=== PATIENT | male | born 1970 | race Caucasian/White ===

== ENCOUNTER 2021-11-25 15:30 | Outpatient (REF) | payer OTHER, SELFPAY ==
--- NOTE | ~2021-11-25 | XR_ITS ---
EXAMINATION: XR CHEST CLINICAL INFORMATION: Atherosclerotic coronary arteries. COMPARISON: Previous chest x-ray March 2020 TECHNIQUE: 2 views of the chest were obtained. FINDINGS: The cardiac and mediastinal contours are stable. There are median sternotomy wires and post-CABG changes. The lungs are clear. There is no pleural effusion or pneumothorax. There are old bilateral rib fractures.. XR/XR chest 2V IMPRESSION: Post-CABG changes. No evidence for acute disease in the chest.
--- NOTE | ~2021-11-25 | XR_ITS ---
EXAMINATION: BILATERAL CLAVICLES CLINICAL INFORMATION: Other specified disorder of bone/shoulder COMPARISON: None TECHNIQUE: 2 views of each clavicle FINDINGS: Bone alignment is normal. No acute fracture or dislocation is seen. There is evidence of old trauma to the bilateral second ribs. The left acromioclavicular joint is upper normal in size measuring 7 mm. The right acromioclavicular joint is normal. If there is clinical suspicion of AC separation, weightbearing views would be recommended. Soft tissues are unremarkable. There are median sternotomy wires. XR/XR clavicle RT IMPRESSION: Upper normal distance of the left acromioclavicular joint. If there is clinical suspicion of AC separation, weightbearing views would be recommended. Old bilateral second rib fractures. Median sternotomy wires.
--- NOTE | ~2021-11-25 | XR_ITS ---
EXAMINATION: BILATERAL CLAVICLES CLINICAL INFORMATION: Other specified disorder of bone/shoulder COMPARISON: None TECHNIQUE: 2 views of each clavicle FINDINGS: Bone alignment is normal. No acute fracture or dislocation is seen. There is evidence of old trauma to the bilateral second ribs. The left acromioclavicular joint is upper normal in size measuring 7 mm. The right acromioclavicular joint is normal. If there is clinical suspicion of AC separation, weightbearing views would be recommended. Soft tissues are unremarkable. There are median sternotomy wires. XR/XR clavicle LT IMPRESSION: Upper normal distance of the left acromioclavicular joint. If there is clinical suspicion of AC separation, weightbearing views would be recommended. Old bilateral second rib fractures. Median sternotomy wires.
== END 2021-11-25 15:31 | disposition home or self-care (01) ==
LOC: HO.XRAY 15:30
PROVIDERS: Absent Provider Internal Medicine; PCP Internal Medicine; Visit Provider Family Medicine
DX: I25.10 Atherosclerotic heart disease of native coronary artery without angina pectoris (principal); M89.8X1 Other specified disorders of bone, shoulder; Z95.1 Presence of aortocoronary bypass graft
CPT/HCPCS: 71046; 73000

== ENCOUNTER 2021-12-29 08:20 | Outpatient (REF) | payer OTHER, SELFPAY ==
--- NOTE | ~2021-12-29 | XR_ITS ---
EXAMINATION: XR CLAVICLE, RIGHT CLINICAL INFORMATION: Shoulder pain COMPARISON: Radiographs chest and right clavicle 11/25/2021. TECHNIQUE: Two views of the right clavicle. FINDINGS: There is no acute fracture. No bony destructive process. The acromioclavicular alignment is normal. The proximal humerus and glenohumeral joints are unremarkable. Right lung apex is clear. There are old healed fractures right anterior second rib and right lateral fifth rib. XR/XR clavicle RT IMPRESSION: -No acute fracture or destructive process. -Acromioclavicular alignment normal.
== END 2021-12-29 08:21 | disposition home or self-care (01) ==
LOC: HO.HOSX 08:20
PROVIDERS: Visit Provider Physician Assistant
DX: R07.89 Other chest pain (principal)
CPT/HCPCS: 73000; 99202

== ENCOUNTER → 2022-03-03 09:29 | Outpatient (BNVA) | payer OTHER, SELFPAY | PROVIDERS: PCP Internal Medicine; Visit Provider Physician Assistant | DX: R07.89 Other chest pain (principal) | CPT/HCPCS: 99212 ==

== ENCOUNTER 2022-03-07 12:51 | Emergency (ER) | payer OTHER, SELFPAY ==
--- NOTE | ~2022-03-07 | XR_ITS ---
EXAMINATION: XR CHEST CLINICAL INFORMATION: Chest pain COMPARISON: 11/25/2021 and priors TECHNIQUE: AP view of the chest was obtained. FINDINGS: Stable right midlung opacities again noted without change, likely related to overlying rib fractures. Persistent bronchial wall thickening. No focal pneumonia. No effusion or pneumothorax. Status post median sternotomy for bypass surgery. Aortic ectasia. No pulmonary edema. No mass or adenopathy. Normal gas pattern without free air or obstruction. No acute fracture seen. XR/XR chest 1V IMPRESSION: 1. Bronchial wall thickening without focal pneumonia. 2. Status post open heart surgery for coronary bypass grafting. 3. Old healed right rib fractures.
[2022-03-07 13:51] VITALS: BP 146/89; PULSE 66; RESP 18; TEMP 37.2; O2SAT 99; BMI 25.5
[2022-03-07 14:48] LABS: Hematocrit 48.8 % (42.0-52.0); Hemoglobin 16.8 g/dl (14.0-18.0); Mean Corpuscular HGB Conc 34.4 g/dl (31.0-36.0); Mean Corpuscular Hemoglobin 30.1 pg (27.0-33.0); Mean Corpuscular Volume 87.3 fL (80.0-98.0); Mean Platelet Volume 9.3 fL (9.4-12.4); Platelet Count 306 X10*3/uL (160-400); Red Blood Count 5.59 X10*6/uL (4.60-5.80); Red Cell Distribution Width 15.7 % (11.0-16.0); White Blood Count 16.7 X10*3/uL (4.8-10.8)
[2022-03-07 15:06] LABS: Troponin-I High Sensitivity < 3.5 ng/L (<3.5-35.0)
[2022-03-07 15:31] LABS: Anion Gap 11 (12-20); Blood Urea Nitrogen 8 mg/dL (9-16); Calcium 9.7 mg/dL (8.4-10.2); Carbon Dioxide 25 mmol/L (22-29); Chloride 109 mmol/L (96-108); Creatinine Clr Calc Pharmacy 103.1; Estimated Glomerular Filt Rate > 60; Glucose Random 99 mg/dL (60-115); Sodium 140 mmol/L (135-145)
--- NOTE | 2022-03-07 16:21 | ED_ITS ---
HPI - General Adult General Chief complaint: General Medical Stated complaint: numbness body Time Seen by Provider: 03/07/22 16:20 Source: patient Mode of arrival: ambulatory Limitations: other (Poor historian, uncooperative with history taking) History of Present Illness HPI narrative: 51-year-old male with an unknown medical history presents to the emergency department with multiple complaints including tongue, hand, feet, penis numbness, asymmetric chest, abnormal colored tongue, and feeling sick times an unknown period of time. Patient tells me that his left chest appears to be larger than his right chest and this has been going on for over 2 years, he tells me this happened after surgical procedure and he needs it evaluated today. Also tells me that the majority of his body feels numb, this started about a week ago but he tells me he wanted to come in to be evaluated today because it is not going away. He also reports chest discomfort however he is unable to describe the discomfort. And also tells me that his tongue is an abnormal collar. Patient is frustrated with me taking history and tells me he should not have to answer all these questions and I should just figure it out and I should be able to tell him why he does not feel well. Patient unwilling to answer my review of systems, and very agitated toward staff members Related Data Home Medications Medication Instructions Recorded Confirmed Unobtainable 12/29/21 12/29/21 Allergies Allergy/AdvReac Type Severity Reaction Status Date / Time No Known Allergies Allergy Unverified 12/29/21 09:57 Review of Systems Review of Systems: Yes Other (Patient unwilling to answer my review of systems) [facility] Past Medical History Attestation statement: The following information was validated with the patient. Source: old records reviewed and nursing notes reviewed Medical History Diabetes High cholesterol Hypertension Surgical History H/O hernia repair History of open heart surgery Social History Social History Alcohol intake: never Patient Tobacco Use Status: Current everyday Tobacco user Advance Directives: No Advance Directives Information Provided: No Current occupational status: unemployed Current occupation: Right handed Physical Exam ED Vital Signs: Vital Signs - 24 hr 03/07/22 13:51 Temperature 98.9 F Pulse Rate 66 Respiratory Rate 18 Blood Pressure 146/89 H Pulse Oximetry 99 Oxygen Delivery Method Room Air BMI result Body Mass Index 25.5 vss Appearance: Alert.? Oriented X3.? No acute distress.? Head: Normocephalic, atraumatic, no step-offs or deformities Eyes: Pupils equal, round and reactive to light.? ENT: Pharynx normal.? Poor dentition. Normal colored tongue. Neck: Normal inspection.? Neck supple.? CVS: Normal heart rate and rhythm.? Pulses normal.? Respiratory: No respiratory distress.? Breath sounds normal.? Abdomen: Soft and nontender.? Skin: Skin warm and dry.? Normal skin color.? Normal skin turgor.? Extremities: No lower extremity edema.? No calf ttp. 5/5 strength to bilateral upper and lower extremities Neuro: Oriented X 3.? No motor deficit.? No sensory deficit. CN 2-12 intact Course Reevaluation(s) Reevaluation #1: Patient noted to have a slight leukocytosis, no acute electrolyte abnormalities requiring intervention, EKG and troponin negative unlikely that this is ACS. X- ray with no acute findings. Flu/COVID/RSV pending. Urine pending. Time: 17:40 Reevaluation #2: I went to go check in on the patient and see how he was feeling, and to re- evaluate however patient eloped. Time: 17:52 Medical Decision Making [facility] Narrative Medical decision making narrative: [birth year] 51 yo m presents w/ chest discomfort, numbness to various aspects of his body, asymmetric chest. Patient's review of systems overwhelmingly positive however he is upset when I ask him questions, unwilling to elaborate on complaints, unwilling to answer complete review of systems PE benign NIH stroke scale 0 Unlikely lacunar infarct, unlikle ICH or posterior stroke. Will obtain blood work, urine, EKG, chest x-ray, flu/covid/rsv Medical Records Medical records reviewed: Yes I reviewed the patient's medical records. Lab Data Lab results reviewed: Yes I reviewed the patient's lab results. Result diagrams: 03/07/22 14:41 03/07/22 14:41 Labs: Lab Results 03/07/22 03/07/22 03/07/22 Range/Units 14:41 14:41 14:41 WBC 16.7 H (4.8-10.8) X10*3/uL RBC 5.59 (4.60-5.80) X10*6/uL Hgb 16.8 (14.0-18.0) g/dl Hct 48.8 (42.0-52.0) % MCV 87.3 (80.0-98.0) fL MCH 30.1 (27.0-33.0) pg MCHC 34.4 (31.0-36.0) g/dl RDW 15.7 (11.0-16.0) % Plt Count 306 (160-400) X10*3/uL MPV 9.3 L (9.4-12.4) fL Absolute Nucleated RBC 0.000 (0.0-0.012) X10*3/uL Nucleated RBC % (auto) 0.0 (0.0-0.2) /100WBC Sodium 140 (135-145) mmol/L Potassium 5.0 (3.3-5.1) mmol/L Chloride 109 H (96-108) mmol/L Carbon Dioxide 25 (22-29) mmol/L Anion Gap 11 L (12-20) BUN 8 L (9-16) mg/dL Creatinine 0.82 (0.5-1.4) mg/dL Estim Creat Clear Calc 103.1 Estimated GFR > 60 Random Glucose 99 (60-115) mg/dL Calcium 9.7 (8.4-10.2) mg/dL Troponin I High Sens < 3.5 (<3.5-35.0) ng/L ECG Data Attestation: I personally reviewed and interpreted this ECG as follows: Prior ECG tracings: available for review Interpretation: Ventricular rate of 47, AL normal, QRS normal, QT/QTC normal. EKG shows sinus bradycardia no ST elevations or inversions concerning for ischemia. No significant changes when compared to March 2020 Critical Care Time Critical Care Time Critical Care Time: No Discharge Plan Discharge Clinical Impression: Sternum pain, Malaise, Chest pain not due to acute coronary syndrome, Numbness Patient Disposition: Elopement Prescriptions: No Action Unobtainable Interventions: ED Discharge Assessment Last Done: 03/07/22 17:41 Discharge Date/Time: 03/07/22 17:42
--- NOTE | 2022-03-07 16:23 | ECG_ITS ---
Test Reason : numbness Blood Pressure : / mmHG Vent. Rate : 047 BPM Atrial Rate : 047 BPM P-R Int : 162 ms QRS Dur : 090 ms QT Int : 424 ms P-R-T Axes : 059 029 053 degrees QTc Int : 375 ms Sinus bradycardia Otherwise normal ECG When compared with ECG of 21-MAR-2020 12:38, Vent. rate has decreased BY 24 BPM QT has shortened Referred By: Timur Crane Electronically Signed By:JOSELYN SCHROEDER MD
--- NOTE | 2022-03-07 17:40 | PC.NURSE ---
Pt left without nofifying staff. Pt was seen by a provider.
[2022-03-07 17:44] LABS: Influenza A PCR NEGATIVE (Negative); Influenza B PCR NEGATIVE (Negative); Resp Syncy Virus RNA Qual PCR NEGATIVE (Negative); SARS COV2 PCR INHOUSE NEGATIVE (Negative)
== END 2022-03-07 17:42 | disposition left against medical advice (07) ==
PROVIDERS: Physician Assistant; Emergency Provider Internal Medicine; PCP Internal Medicine
DX: R07.89 Other chest pain (principal); R20.0 Anesthesia of skin; M79.10 Myalgia, unspecified site; Z20.822 Contact with and (suspected) exposure to COVID-19; F17.200 Nicotine dependence, unspecified, uncomplicated; Z71.6 Tobacco abuse counseling; Z79.899 Other long term (current) drug therapy
CPT/HCPCS: 0241U; 36415; 71045; 80048; 84484; 85027; 93005; 99283

== ENCOUNTER → 2022-03-27 08:47 | Outpatient (BNVA) | payer OTHER, SELFPAY | PROVIDERS: PCP Internal Medicine; Visit Provider Nurse Practitioner Family | DX: G89.18 Other acute postprocedural pain (principal); R07.89 Other chest pain; G89.29 Other chronic pain; Z95.1 Presence of aortocoronary bypass graft | CPT/HCPCS: 20552; 99202; J2795; J3300 ==

== ENCOUNTER 2023-04-02 18:43 | Outpatient (REF) | payer OTHER, SELFPAY ==
[2023-04-06 00:14] LABS: C. trachomatis RNA TMA DETECTED (NOT DETECTED); N. gonorrhoeae RNA TMA DETECTED (NOT DETECTED)
== END 2023-04-02 18:44 | disposition home or self-care (01) ==
LOC: HO.HHCLNP 18:43
PROVIDERS: Visit Provider Registered Nurse
DX: R30.0 Dysuria (principal); N45.1 Epididymitis
CPT/HCPCS: 36415; 87086; 87491; 87591

== ENCOUNTER 2023-04-03 15:47 | Outpatient (REF) | payer OTHER, SELFPAY ==
[2023-04-04 04:54] LABS: Syphilis Screen Nonreactive (Nonreactive)
[2023-04-06 15:18] LABS: HIV RNA PCR Qn Copies NOT DETECTED copies/mL (NOT DETECTED); HIV RNA PCR Qn Log Copies NOT DETECTED (NOT DETECTED)
[2023-04-07 13:43] LABS: HCV Log PCR <1.18 NOT DETECTED Log IU/mL (NOT DETECTED); HepC Viral Load <15 NOT DETECTED IU/mL (NOT DETECTED)
== END 2023-04-03 15:48 | disposition home or self-care (01) ==
LOC: HO.HHCL 15:47
PROVIDERS: Visit Provider Registered Nurse
DX: R30.0 Dysuria (principal)
CPT/HCPCS: 36415; 86780; 87522; 87536

== ENCOUNTER 2024-07-31 12:19 | Outpatient (REF) | payer OTHER, SELFPAY ==
[2024-07-31 13:47] LABS: Hematocrit 38.3 % (42.0-52.0); Hemoglobin 12.9 g/dl (14.0-18.0); Mean Corpuscular HGB Conc 33.7 g/dl (31.0-36.0); Mean Corpuscular Hemoglobin 30.5 pg (27.0-33.0); Mean Corpuscular Volume 90.5 fL (80.0-98.0); Mean Platelet Volume 9.9 fL (9.4-12.4); Platelet Count 290 X10*3/uL (160-400); Red Blood Count 4.23 X10*6/uL (4.60-5.80); Red Cell Distribution Width 15.8 % (11.0-16.0); White Blood Count 10.4 X10*3/uL (4.8-10.8)
[2024-07-31 14:10] LABS: B Type Natriuretic Peptide 56 pg/mL (<100)
[2024-07-31 16:08] LABS: Alanine Aminotransferase 36 U/L (0-40); Albumin Level 4.1 g/dL (3.5-5.0); Alkaline Phosphatase 57 U/L (39-117); Anion Gap 8 (12-20); Aspartate Amino Transferase 29 U/L (5-37); Bilirubin Total 0.4 mg/dL (0.0-1.0); Blood Urea Nitrogen 14 mg/dL (9-16); Calcium 8.8 mg/dL (8.4-10.2); Carbon Dioxide 29 mmol/L (22-29); Chloride 106 mmol/L (96-108); Cholesterol 161 mg/dL (<200); Estimated Glomerular Filt Rate > 60; Glucose Random 93 mg/dL (60-115); HDL Cholesterol 52 mg/dL (>40); LDL Cholesterol Calculated 100 mg/dL (<100); Potassium 3.5 mmol/L (3.3-5.1); Sodium 139 mmol/L (135-145); TSH reflex Free T4 3.71 uIU/mL (0.32-4.0); Total Protein 6.4 g/dL (6.5-8.0); Triglycerides 45 mg/dL (<150)
[2024-08-01 08:10] LABS: HBS Num1 46.91 mIU/mL (0-7.99); HBc Num1 0.11 S/CO (0.00-0.79); HBsAGNum1 0.35 S/CO (0.00-0.99); HIV AB/AG Nonreactive (Nonreactive); HIV Num 1 0.05 S/CO (0.00-0.99); Hepatitis B Core Antibody Nonreactive (Nonreactive); Hepatitis B Surface Antigen Negative (Negative); ~Hepatitis B Surface Antibody REACTIVE (Nonreactive)
== END 2024-07-31 12:20 | disposition home or self-care (01) ==
LOC: HO.HHCL 12:19
PROVIDERS: Visit Provider Nurse Practitioner Family
DX: Z00.00 Encounter for general adult medical examination without abnormal findings (principal); R06.09 Other forms of dyspnea; R63.4 Abnormal weight loss; I73.9 Peripheral vascular disease, unspecified
CPT/HCPCS: 36415; 80053; 80061; 83880; 84443; 85027; 86704; 86706; 87340; 87389

== ENCOUNTER 2024-11-01 10:22 | Emergency (ER) | payer OTHER, SELFPAY ==
--- NOTE | 2024-11-01 | ECG_ITS ---
Test Reason : CP Blood Pressure : */* mmHG Vent. Rate : 52 BPM Atrial Rate : 52 BPM P-R Int : 156 ms QRS Dur : 96 ms QT Int : 450 ms P-R-T Axes : 67 69 73 degrees QTcB Int : 418 ms Sinus bradycardia Otherwise normal ECG When compared with ECG of 07-Mar-2022 16:29, No significant change was found Referred By: Generic ED Physician Electronically Signed By: JOSELYN SCHROEDER MD
--- NOTE | ~2024-11-01 | CT_ITS ---
CLINICAL HISTORY: R flank pain, hx stones CT abdomen and pelvis without contrast Comparison: None Findings: Lung bases are essentially clear. The liver is borderline prominent. The gallbladder, spleen, adrenal glands and pancreas are unremarkable. There are several tiny renal calculi bilaterally, measuring up to proximally 3 mm. No hydronephrosis or hydroureter. There is a 3 mm calculus within the bladder just beyond the right ureterovesicular junction. No bowel obstruction or free air. There is fecal retention within the colon. Diffuse moderately severe atherosclerotic disease. No acute osseous finding. Impression: There is a 3 mm calculus just beyond the right ureterovesicular junction, within the bladder. Suspect recently passed stone. Several tiny calculi are present within the kidneys bilaterally. Additional incidental findings. This document has been electronically signed by: Colby De La Torre MD on 11/01/2024 13:27:35
--- NOTE | ~2024-11-01 | XR_ITS ---
CLINICAL HISTORY: chest pain 2 view chest x-ray Comparison: 03/07/2022 Findings: The lungs are clear. Normal size heart. No acute fracture. The patient is status post median sternotomy. IMPRESSION: 1. No acute findings. This document has been electronically signed by: Donald Anthony MD on 11/01/2024 12:07:06
[2024-11-01 10:25] VITALS: BP 150/62; BP 157/82; PULSE 49; PULSE 51; RESP 18; TEMP 36.5; O2SAT 100; O2SAT 98; BMI 21.3
[2024-11-01 10:41] LABS: MANUAL DIFF FLAG NO
[2024-11-01 10:44] LABS: Basophils Absolute Auto 0.1 X10*3/uL (0.0-0.2); Basophils Percent Auto 0.6 % (0-2); Eosinophils Absolute Auto 0.1 X10*3/uL (0.0-0.4); Eosinophils Percent Auto 1.1 % (0-4); Hematocrit 40.1 % (42.0-52.0); Hemoglobin 13.4 g/dl (14.0-18.0); Imm Gran Abs Auto 0.05 X10*3/uL (0.00-0.03); Imm Gran Pct Auto 0.5 % (0.0-0.4); Lymphocytes Absolute Auto 2.4 X10*3/uL (1.2-4.9); Lymphocytes Percent Auto 22.7 % (20-40); Mean Corpuscular HGB Conc 33.4 g/dl (31.0-36.0); Mean Corpuscular Hemoglobin 29.8 pg (27.0-33.0); Mean Corpuscular Volume 89.1 fL (80.0-98.0); Mean Platelet Volume 8.6 fL (9.4-12.4); Monocytes Absolute Auto 0.7 X10*3/uL (0.1-1.2); Monocytes Percent Auto 6.4 % (2-11); Neutrophils Absolute Auto 7.4 x10*3/uL (2.0-8.3); Neutrophils Percent Auto 68.7 % (45-73); Platelet Count 350 X10*3/uL (160-400); Red Cell Distribution Width 15.1 % (11.0-16.0); White Blood Count 10.7 X10*3/uL (4.8-10.8)
[2024-11-01 11:00] LABS: Alanine Aminotransferase 25 U/L (0-40); Albumin Level 4.2 g/dL (3.5-5.0); Anion Gap 12 (12-20); Aspartate Amino Transferase 28 U/L (5-37); Bilirubin Direct 0.1 mg/dL (0.0-0.5); Bilirubin Total 0.3 mg/dL (0.0-1.0); Blood Urea Nitrogen 17 mg/dL (9-16); Calcium 9.4 mg/dL (8.4-10.2); Carbon Dioxide 24 mmol/L (22-29); Chloride 110 mmol/L (96-108); Creatinine Clr Calc Pharmacy 112.7; Estimated Glomerular Filt Rate > 60; Glucose Random 113 mg/dL (60-115); Lipase 33 U/L (8-78); Potassium 4.7 mmol/L (3.3-5.1); Sodium 141 mmol/L (135-145); Total Protein 7.4 g/dL (6.5-8.0)
[2024-11-01 11:03] LABS: Troponin-I High Sensitivity < 2.7 ng/L (<3.5-35.0)
--- NOTE | 2024-11-01 11:10 | ED_ITS ---
HPI - General Adult General Chief complaint: General Medical Stated complaint: R FLANK PAIN Time Seen by Provider: 11/01/24 10:37 Source: patient and game engineer (Azerbaijani) Mode of arrival: ambulatory Limitations: language barrier (sammarinese) History of Present Illness ED Provider: FARIDEH BARBOZA PA-C HPI narrative: 53 year old male with pmhx significant for HDL, HTN, DM, GERD, h.pylori, gastritis, depression, epididymitis presents to the ED today via EMS for evaluation of right sided flank pain that began acutely approximately 20 minutes [employer]. On my initial evaluation, he states his flank pain has improved since arriving to the ED. His pain is currently a 2/10. Pain radiates from his right flank to his right lower quadrant. Admits to history of similar when he has had renal stones. He was able to pass these on his own. Did not require lithotripsy/ surgery. Denies dysuria, hematuria. He also endorses pressure along the left side of his chest x3 years, more prominent since flank pain began. 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 He reports taking a medication for pain [employer] however cannot recall the name. Pain foes not radiated. Denies any fever, chills, SOB, wheezing, palpitations or syncope. no recent travel or long car rides. Related Data Home Medications ?Medication ?Instructions ?Recorded ?Confirmed aspirin 81 mg chewable tablet 1 tab PO DAILY 03/27/22 clopidogrel 75 mg tablet 75 mg PO DAILY 03/27/22 cyanocobalamin (vitamin B-12) 1,000 mcg PO DAILY 03/27/22 1,000 mcg tablet escitalopram oxalate 5 mg tablet 0 mg PO 03/27/22 furosemide 20 mg tablet 20 mg PO DAILY 03/27/22 hydroxyzine HCl 25 mg tablet 25 mg PO TID PRN 03/27/22 metoprolol tartrate 25 mg tablet 25 mg PO BID 03/27/22 nicotine 21 mg/24 hr daily 1 patch topical DAILY 03/27/22 transdermal patch rosuvastatin 40 mg tablet 40 mg PO DAILY 03/27/22 Allergies Allergy/AdvReac Type Severity Reaction Status Date / Time No Known Allergies Allergy Verified 11/01/24 10:28 Review of Systems 2 Review of Systems: Constitutional: No fever, chills, fatigue, night sweats, weight changes ENT/Mouth: No ear pain, hearing loss, nasal congestion, sinus pain, rhinorrhea, sore throat Eyes: No eye pain, swelling, redness, vision changes, discharge Cardio: No chest pain, palpitations, GRUBBS, orthopnea, peripheral edema, +chest pain Pulm: No SOB, cough, sputum, wheezing, dyspnea, hemoptysis GI: No nausea, vomiting, hematemesis, abdominal pain, diarrhea, constipation, hematochezia, melena : No irregular bleeding, dysuria, frequency, urgency, hesitancy, hematuria, urinary flow changes, urinary incontinence or retention, +right flank pain MSK: No back pain, neck pain, joint pain, myalgias Skin: No lesions, rashes Neuro: No weakness, numbness, paresthesias, LOC, dizziness, headache Psych: No anxiety/panic, depression, SI/HI, AH/VH All other systems reviewed and are negative. [facility] Past Medical History Attestation statement: The following information was validated with the patient. Source: old records reviewed and nursing notes reviewed Medical History Hyperlipidemia Epididymitis Depression Dysuria Microscopic hematuria Chronic gastritis Hydrocele H. pylori infection Dysphagia GERD (gastroesophageal reflux disease) High cholesterol Hypertension Diabetes Surgical History H/O hernia repair History of open heart surgery Social History Social History Alcohol intake: current Alcohol intake frequency: holidays/special occasions only Patient Tobacco Use Status: Current everyday Tobacco user Smoked in Last 30 Days: No Use of substances other than those prescribed or required for medical reasons: No Advance Directives: No Advance Directives Information Provided: Yes Do you have a plan to hurt others: No Plan Current occupational status: unemployed Current occupation: Right handed Physical Exam ED Vital Signs: Vital Signs - 24 hr 11/01/24 10:25 11/01/24 13:50 Temperature 97.7 F Pulse Rate 51 56 Respiratory Rate 18 16 Blood Pressure 157/82 H 144/93 H Pulse Oximetry 98 Oxygen Delivery Method Room Air Room Air BMI result Body Mass Index 21.3 Hypertensive, vitals otherwise WNL General: Well appearing, in no acute distress. Skin: Warm, dry, intact. No rashes or lesions. Head: Normocephalic, atraumatic. EENT: Hearing is intact b/l. Conjunctiva clear. PERRLA. EOM intact. Moist mucous membranes.? Neck: Supple without LAD Cardiac: Chest wall symmetric. RRR. no jvd or peripheral edema. +minimal tenderness to palpation along left anterior chest wall without palpable deformity or crepitus. Lungs: Normal respiratory effort without accessory muscle use. CTA bilaterally. Abdomen: Soft, non-tender, non-distended. No rebound tenderness or guarding. Positive BS x4. no cvat. Back: No midline spinous or paraspinal tenderness. No step off deformity. Ext: Upper and lower extremities atraumatic, without tenderness, deformity, swelling or erythema Neuro: AOx3. Normal speech. Ambulating with steady gait. Psych: Appropriate mood and affect. Responds appropriately to questions. Course Course Course Narrative: 1135 -- CBC without leukocytosis or left shift. normocytic anemia, h&h stable when compared to priors. chemistry without acute electrolyte abnormality requiring intervention. no JUVENTINO. liver function wnl. troponin undetectable. EKG showing sinus bradycardia with a rate of 52 beats per minute, QT 450, QTC 418, no acute ischemic changes or ST elevations. Patient is on a beta-farhan, likely causing bradycardia. no change when compared to prior EKGs. > UA, CT A/P and chest xray pending 1338 -- UA still pending. CTA/P showing 3 mm calculus just beyond the right UVJ in the bladder suggesting recently passed stone. There are several tiny calculi within bilateral kidneys. No evidence of hydronephrosis or hydroureter. Incidental findings of fecal retention without evidence of obstruction. > discussed results w/ patient. he will try to void at this time. he last voided [employer] in ED and has not had much to drink. I am not concerned about obstruction. 1413 -- [facility] was able to provide us with a urine sample. urine showing large amount of blood/ rbcs, indicated of stone. no noted infection. patient denies any pain at present. advised Tylenol at home as needed. advised to follow up with urologist. advised miralax/ Colace to help move bowels. cardiac work up unremarkable. advised to follow up with feeder loader as needed. Patient has remained stable throughout ED visit today. Discussed worrisome signs and symptoms and when to return to the ED. All questions answered at this time. Patient is agreeable with disposition and stable for discharge. Medications Administered Discontinued Medications Generic Name Dose Route Start Last Admin Trade Name Manuel PRN Reason Stop Dose Admin Acetaminophen 975 mg 11/01/24 11:49 11/01/24 12:20 Acetaminophen 325 Mg Tablet PO 11/01/24 11:50 975 mg ONCE ONE Administration Medical Decision Making Medical Decision Making [facility] Narrative: 53 year old male with pmhx significant for HDL, HTN, DM, GERD, h.pylori, gastritis, depression, epididymitis presents to the ED today via EMS for evaluation of right sided flank pain that began acutely approximately 20 minutes [employer]. vital signs notable for bradycardia, vitals are otherwise wnl. he is nontoxic appearing and in NAD. on exam, no cvat bilaterally. abdoment is soft, ND/NT, no rebound or guarding. normoactive bs x4. bradycardic with regular rhythm. lungs are cta b/l. minimal tenderness to palpation of left anterior chest wall w/o palpable deformity or crepitus. Differential diagnosis includes renal colic, nephrolithiasis, hydronephrosis, UTI. Lower suspicion for pyelonephritis, obstructive uropathy. Concern for noncardiac chest pain, costochondritis, pleuritis. Unlikely ACS, arrhythmia. Presentation not consistent with acute PE, pneumothorax, thoracic aortic dissection, cardiac effusion or tamponade. History without high risk features (not substernal, no exertional component, not relieved with rest).? Exam without evidence of volume overload. EKG without signs of active ischemia Given the timing of pain to ED presentation, plan to send single troponin to evaluate for NSTEMI. Plan for labs, UA, ekg, trop, CXR, pain control, re-evaluation. Differential Diagnosis Differential Diagnoses: The differential diagnosis associated with the presentation includes as above. Admission/Observation not indicated. Lab Data [facility] Lab Attestation statement: I reviewed the patient's lab results. as above. 11/01/24 10:37 11/01/24 10:37 Labs: Lab Results 11/01/24 11/01/24 Range/Units 10:37 13:51 WBC 10.7 (4.8-10.8) X10*3/uL RBC 4.50 L (4.60-5.80) X10*6/uL Hgb 13.4 L (14.0-18.0) g/dl Hct 40.1 L (42.0-52.0) % MCV 89.1 (80.0-98.0) fL MCH 29.8 (27.0-33.0) pg MCHC 33.4 (31.0-36.0) g/dl RDW 15.1 (11.0-16.0) % Plt Count 350 (160-400) X10*3/uL MPV 8.6 L (9.4-12.4) fL Immature Gran % (Auto) 0.5 H (0.0-0.4) % Neut % (Auto) 68.7 (45-73) % Lymph % (Auto) 22.7 (20-40) % [place] % (Auto) 6.4 (2-11) % Eos % (Auto) 1.1 (0-4) % Baso % (Auto) 0.6 (0-2) % Lymph # (Auto) 2.4 (1.2-4.9) X10*3/uL [place] # (Auto) 0.7 (0.1-1.2) X10*3/uL Eos # (Auto) 0.1 (0.0-0.4) X10*3/uL Baso # (Auto) 0.1 (0.0-0.2) X10*3/uL Abs Immat Gran (auto) 0.05 H (0.00-0.03) X10*3/uL Absolute Neuts (auto) 7.4 (2.0-8.3) x10*3/uL Absolute Nucleated RBC 0.000 (0.0-0.012) X10*3/uL Nucleated RBC % (auto) 0.0 (0.0-0.2) /100WBC Sodium 141 (135-145) mmol/L Potassium 4.7 D (3.3-5.1) mmol/L Chloride 110 H (96-108) mmol/L Carbon Dioxide 24 (22-29) mmol/L Anion Gap 12 (12-20) BUN 17 H (9-16) mg/dL Creatinine 0.70 (0.5-1.4) mg/dL Estim Creat Clear Calc 112.7 Estimated GFR > 60 Random Glucose 113 (60-115) mg/dL Calcium 9.4 D (8.4-10.2) mg/dL Magnesium 2.0 (1.6-2.6) mg/dL Total Bilirubin 0.3 (0.0-1.0) mg/dL Direct Bilirubin 0.1 (0.0-0.5) mg/dL AST 28 (5-37) U/L ALT 25 (0-40) U/L Alkaline Phosphatase 54 (39-117) U/L Troponin I High Sens < 2.7 (<3.5-35.0) ng/L Total Protein 7.4 (6.5-8.0) g/dL Albumin 4.2 (3.5-5.0) g/dL Lipase 33 (8-78) U/L Urine Color Yellow Urine Appearance Clear Urine pH 8.5 (5.0-9.0) Ur Specific [place] 1.015 (1.005-1.025) Urine Protein Negative (Neg-Trace) mg/dL Urine Glucose (UA) Negative (Negative) mg/dL Urine Ketones Negative (Negative) mg/dL Urine Blood Large (3+) H (Negative) Urine Nitrite Negative (Negative) Ur Leukocyte Esterase Negative (Negative) Urine RBC >20 H (0-2) /HPF Urine WBC 0-5 (0-5) /HPF Ur Squamous Epith Cells 0-2 (0-2) /HPF Urine Bacteria None Seen (None Seen) Hyaline Casts 0-2 (0-2) /LPF Independent Interpretation I performed an independent interpretation of an: EKG, Plain X-Ray and CT Scan Interpretation: CXR without infiltrate or consolidation EKG showing sinus bradycardia at a rate of 52 beats per minute, QT 450, QTC 418, no acute ischemic changes or ST elevations CT A/P showing small stone within urinary bladder Radiology Impression Discussion of test interpretation with radiology: I have reviewed the radiologist's reading. Radiologist Impression: Procedure(s): CT abdomen pelvis wo IV con Accession Number(s): [id number] cc: Physician,Unknown ; Farideh Barboza~ Report Number: [id number]: Total DLP = 322.00 mGy-cm CLINICAL HISTORY: R flank pain, hx stones CT abdomen and pelvis without contrast Comparison: None Findings: Lung bases are essentially clear. The liver is borderline prominent. The gallbladder, spleen, adrenal glands and pancreas are unremarkable. There are several tiny renal calculi bilaterally, measuring up to proximally 3 mm. No hydronephrosis or hydroureter. There is a 3 mm calculus within the bladder just beyond the right ureterovesicular junction. No bowel obstruction or free air. There is fecal retention within the colon. Diffuse moderately severe atherosclerotic disease. No acute osseous finding. Impression: There is a 3 mm calculus just beyond the right ureterovesicular junction, within the bladder. Suspect recently passed stone. Several tiny calculi are present within the kidneys bilaterally. Additional incidental findings. This document has been electronically signed by: Colby De La Torre MD on 11/01/2024 13:27:35 Procedure(s): XR chest 2V Accession Number(s): [id number] cc: Harper Matamoros DO; Physician,Unknown ~ CLINICAL HISTORY: chest pain 2 view chest x-ray Comparison: 03/07/2022 Findings: The lungs are clear. Normal size heart. No acute fracture. The patient is status post median sternotomy. IMPRESSION: 1. No acute findings. This document has been electronically signed by: Donald Anthony MD on 11/01/2024 12:07:06 Independent Historian Clinical information obtained from an independent historian. History obtained from or confirmed by: EMS External Record Review External record reviewed: Inpatient record Prescription Management I considered prescription management with: Pain Medication Chronic Conditions Patient?s care impacted by: Other (renal stones) Social Determinants Patient?s care significantly limited by Social Determinants of Health including: Other Social Determinant of Health Critical Care Time Critical Care Time Critical Care Time: No Discharge Plan Discharge Clinical Impression: Nephrolithiasis, Renal colic, Constipation, Atypical chest pain Patient Disposition: Home, Self-Care Instructions: Constipation (ED), Renal Colic (ED), Noncardiac Chest Pain (ED) Additional Instructions: You were evaluated in the ED today for right flank pain. Your blood work is reassuring. The CT scan of your abdomen shows a recently passed 3mm stone within your bladder. You will urinate this out shortly and may experience some discomfort. Your urine does not demonstrate infection. I recommend continuing your home furosemide to help pass this stone through your urine. I also recommend taking tylenol for any pain/ discomfort. Follow up with your urologist. If you do not have one, a referral has been provided to you. Call them to establish care. They will not call you. The CT scan also shows stool throughout your colon without evidence of obstruction. You may purchase over the counter miralax (laxative) and colace (stool softener) to help move your bowels. You were also evaluated for chest pain. Your evaluation has shown no signs of medical conditions requiring emergent intervention at this time, however I recommend that you follow up with your primary care provider or your feeder loader as soon as possible for further testing as an outpatient. If you do not have one, a referral has been provided. Please call them to make an appointment, they will not call you. Return to the Emergency Department if you experience worsening or uncontrolled chest pain, shortness of breath, light headedness, feeling faint, nausea, vomiting, or any other concerning symptoms. Prescriptions: No Action escitalopram oxalate 5 mg tablet 0 mg PO hydroxyzine HCl 25 mg tablet 25 mg PO TID PRN aspirin 81 mg tablet,chewable 1 tab PO DAILY metoprolol tartrate 25 mg tablet 25 mg PO BID furosemide 20 mg tablet 20 mg PO DAILY clopidogrel 75 mg tablet 75 mg PO DAILY nicotine 21 mg/24 hr patch 24 hour 1 patch topical DAILY rosuvastatin 40 mg tablet 40 mg PO DAILY cyanocobalamin (vitamin B-12) 1,000 mcg tablet 1,000 mcg PO DAILY Referrals: [facility] [Provider Group] Physician,Unknown J [Primary Care Provider] - Print Language: Azerbaijani
[2024-11-01 11:12] LABS: Alkaline Phosphatase 54 U/L (39-117)
[2024-11-01] MEDS: Acetaminophen 325 MG TABLET 975 MG PO (12:20)
[2024-11-01 13:50] VITALS: BP 144/93; PULSE 56; RESP 16
[2024-11-01 13:57] LABS: Appearance Urine Clear; Color Urine Yellow; Glucose Urine UA Negative (Negative); Leukocyte Esterase Urine Negative (Negative); Nitrite Urine Negative (Negative); PH 8.5 (5.0-9.0); Specific Gravity - Urine 1.015 (1.005-1.025); UMIC TRIGGER UACC YES; Urine Blood Large (3+) (Negative); Urine Ketones Negative (Negative); Urine Protein Negative (Neg-Trace)
[2024-11-01 14:02] LABS: Bacteria Urine None Seen (None Seen); Hyaline Casts Urine 0-2 /LPF (0-2); RBC Urine >20 /HPF (0-2); Squamous Epithelial Cell Urine 0-2 /HPF (0-2); WBC Urine 0-5 /HPF (0-5)
[2024-11-01 14:20] VITALS: BP 144/93; PULSE 56; RESP 16; TEMP 36.4
== END 2024-11-01 14:20 | disposition home or self-care (01) ==
PROVIDERS: Emergency Provider Emergency Medicine
DX: N20.0 Calculus of kidney (principal); R10.9 Unspecified abdominal pain; K59.00 Constipation, unspecified; R07.89 Other chest pain; I10 Essential (primary) hypertension; R10.31 Right lower quadrant pain; I25.10 Atherosclerotic heart disease of native coronary artery without angina pectoris; F17.210 Nicotine dependence, cigarettes, uncomplicated; Z79.899 Other long term (current) drug therapy
CPT/HCPCS: 36415; 71046; 74176; 80053; 81001; 82248; 83690; 83735; 84484; 85025; 93005; 99284; 99285

== ENCOUNTER → 2024-11-01 10:30 | Outpatient (BNV) | payer OTHER, SELFPAY | PROVIDERS: Emergency Provider Emergency Medicine; Visit Provider Internal Medicine Cardiovascular Disease | DX: R00.1 Bradycardia, unspecified (principal) | CPT/HCPCS: 93010 ==

== ENCOUNTER → 2024-11-01 10:50 | Outpatient (BNV) | payer OTHER, SELFPAY | PROVIDERS: Emergency Provider Emergency Medicine; Visit Provider Radiology Diagnostic Radiology | DX: N21.0 Calculus in bladder (principal); R07.9 Chest pain, unspecified | CPT/HCPCS: 71046; 74176 ==